=== PATIENT | male | born 1990 | race Two or more races ===

== ENCOUNTER 2023-03-06 02:07 | Emergency (ER) | payer MEDICAID ==
[~2023-03-06] VITALS: Ht 170.2 cm; Wt 82.5 kg
[2023-03-06 02:42] VITALS: BP 154/97
[2023-03-06] MEDS ORDERED: HYDR-4902 PO (03:23)
[2023-03-06] MEDS ORDERED: IBUPROFEN 800 MG TAB PO ONE (03:30)
== END 2023-03-06 03:54 | disposition home or self-care (01) ==
LOC: ER 02:07
DX: S80.01XA Contusion of right knee, initial encounter (principal); S09.8XXA Other specified injuries of head, initial encounter; Y04.2XXA Assault by strike against or bumped into by another person, initial encounter; Y93.89 Activity, other specified; Y92.89 Other specified places as the place of occurrence of the external cause; Y99.8 Other external cause status
CPT/HCPCS: 70450